=== PATIENT | female | born 1950 | race Caucasian/White ===

== ENCOUNTER 2017-02-21 15:45 | Emergency (ER) | payer MEDICARE, OTHER ==
[~2017-02-21] VITALS: Ht 157.5 cm; Wt 63.2 kg
[2017-02-21 15:47] VITALS: BP 180/96; PULSE 77; RESP 16; O2SAT 100
[2017-02-21 17:57] LABS: BASOPHILS % (AUTO) 0.5 % (0-3); EOSINOPHILS % (AUTO) 1.6 % (0-5); Mean Corpuscular Hemoglobin 28.8 pg (27.0-35.0); Mean Corpuscular Volume 87.4 fL (81-100); NEUTROPHILS % (AUTO) 58.4 % (40-74); Platelet Count 281 bil/L (150-400)
--- NOTE | 2017-02-21 18:53 | ED.REPORT ---
HPI-Abd Pain F 40 and Over Date of Service Feb 21, 2017 ED Provider: Alonzo Dover MD A 66 year old female with a history of hypothyroidism and a family history of diverticulitis is referred to the ED from Urgent Care complaining of abdominal pain. The pt began experiencing cramping pain across her lower abdomen four days ago, which is exacerbated by movement and eating. She rates the pain at a 5 /10 when she pushes on it. This is accompanied by loose stools, though the pt denies vomiting, fever or chills. She had a colonoscopy in 02/2017 which showed diverticulosis. Nursing Notes Stated Complaint: ABDOMINAL PAIN Chief Complaint: Female Abdominal Pain Nursing Notes Reviewed: Yes Allergies: Coded Allergies: azithromycin (Verified Allergy, Severe, 02/21/17) Scheduled Amoxicillin/Clav K 875-125 mg (Augmentin 875-125 mg) 1 Each Tablet 1 TABLET PO BID General Time Seen by MD: 18:52 Chief Complaint Abdominal pain Hx Obtained From: Patient Arrived By: Walk-in Sudden in Onset?: No Onset Occurred: 4 days ago Symptom Duration: Since onset Recent Healthcare: No recent hospitalization, Recent doctor visit Similar Sx Previous: No Past Medical History Past Medical History hypothyroidism Past Surgical History colonoscopy 02/2014 Reports: Cholecystectomy Family History diverticulitis Smoking History Never Smoker Social History one beer daily Other Social History: Good social support, Ambulatory Status Independent Review of Systems Constitutional: Denies: Chills, Fever Respiratory: Denies: Non-productive cough, Shortness of breath Cardiovascular: Denies: Chest pain GI: Reports: Abdominal pain, Diarrhea, Denies: Vomiting Musculoskeletal: Denies: Back pain, Neck pain Complete sys rev & neg: except as marked. Physical Exam Vital Signs Vital Signs (First) Date Time Temp Pulse Resp B/P Pulse Ox O2 Delivery O2 Flow Rate FiO2 02/21/17 15:47 36.6 77 16 180/96 100 Room Air Initial VS: Reviewed General/Constitutional: Awake, Alert Respiratory / Chest: Atraumatic, Breath sounds NL, Breath sounds = bilat, No respiratory distress Cardiovascular: Heart rate NL, Regular rhythm, Heart sounds NL Abdomen: Atraumatic, Soft mid lower abdominal tenderness with guarding Back: Atraumatic, Full range of motion Head / Eyes: Atraumatic, Normocephalic, PERRL, EOMI ENT: Atraumatic, Airway patent, Mucous membranes moist Skin: Atraumatic, Color NL, No rash, Warm, Dry Neurologic: Oriented X3, Speech NL, No motor deficits, No sensory deficits Neck: Atraumatic, Supple, Full range of motion Upper Extremity / MS: Atraumatic, Full range of motion Lower Extremity / Pelvis / MS: Atraumatic, Full range of motion Psychiatric: Affect NL, Mood NL Interpretation & Diagnostics Lab Results Interpretation Result Diagram: 02/21/17 1740 02/21/17 1740 Test 02/21/17 17:40 02/21/17 17:56 White Blood Count 7.3th/mm3 (3.8-10.1) Red Blood Count 4.68mil/mm3 (3.90-5.20) Hemoglobin 13.5g/dL (12.0-15.6) Hematocrit 40.9% (35.0-46.0) Mean Corpuscular Volume 87.4fL (81-100) Mean Corpuscular Hemoglobin 28.8pg (27.0-35.0) Mean Corpuscular Hemoglobin Concent 33.0% (32.0-37.0) Red Cell Distribution Width 13.3% (12.3-15.4) Platelet Count 281bil/L (150-400) Neutrophils (%) (Auto) 58.4% (40-74) Lymphocytes (%) (Auto) 32.4% (14-46) Monocytes (%) (Auto) 7.0% (4-12) Eosinophils (%) (Auto) 1.6% (0-5) Basophils (%) (Auto) 0.5% (0-3) Sodium Level 138mEq/L (134-144) Potassium Level 3.9mEq/L (3.5-5.2) Chloride Level 99mEq/L (97-108) Carbon Dioxide Level 23mmol/L (18-29) Blood Urea Nitrogen 15mg/dL (8-27) Creatinine 0.78mg/dL (0.57-1.00) Estimat Glomerular Filtration Rate 105mL/min (>59) Glucose Level 100mg/dL (60-99) Calcium Level 10.2mg/dL (8.5-10.1) Magnesium Level 2.0mg/dL (1.6-2.6) Total Bilirubin 0.3mg/dL (0.0-1.2) Aspartate Amino Transf (AST/SGOT) 18U/L (0-50) Alanine Aminotransferase (ALT/SGPT) 12U/L (0-32) Alkaline Phosphatase 76U/L (25-165) Total Protein 8.3g/dL (6.4-8.4) Albumin 4.1g/dL (3.4-5.0) Lipase 46U/L (13-60) Hold Bah Top Tube Received (Received) Hold Urine Received (Received) Re-Eval/Medical Decision Source of Hx: Old records Re-Evaluation/Progress : Time of Eval: 19:04 Patient Status: Condition improved Re-Evaluation/Progress Note: I discussed the possible diagnosis of diverticulitis which seems likely to me. I offered CT imaging which she has declined at this time. This also seems reasonable to me I think empiric therapy for diverticulitis is appropriate with close outpatient follow-up. The diagnosis and plan for discharge was discussed. The pt understands and agrees with the plan. All questions are addressed at this time. Counseled Regarding: Diagnosis, Lab results, Need for follow-up, When/why to return to ED Discharge & Departure Primary Impression: Diverticulitis Diverticulitis site: unspecified part of intestinal tract Diverticulitis bleeding: without bleeding Diverticulitis complication: without perforation or abscess Qualified Code: K57.92 - Diverticulitis of intestine, part unspecified, without perforation or abscess without bleeding Disposition: Home Discharge Condition All VS Reviewed: Yes Condition: Stable Patient Instructions: Diverticulitis (ED) Additional Instructions: Thank you for allowing us to be a part of your care. Take one tablet of Augmentin twice daily. Ibuprofen or Tylenol for pain. Take 1-2 Vicodin ( hydrocodone/APAP) every 4-6 hours as needed for severe pain. Arrange a follow up appointment in the clinic early next week. Return to the emergency department if you develop any new or worsening symptoms including fever, vomiting, or increasing pain. Referrals: Eliza Marie (PCP) Scribe Attestation Portions of this note were transcribed by Josh Perry. I, Dr. Dover personally performed the history, physical exam and medical decision-making; I reviewed and confirmed the accuracy of the information in the transcribed note. copies to: Eliza Marie Kirk H MD Feb 21, 2017 18:53 JOSH PERRY Feb 21, 2017 19:01
[2017-02-21] MEDS ORDERED: AMOX-366 PO (19:07)
[2017-02-21] MEDS ORDERED: Amoxicillin-Clav 875-125 mg Tablet PO ONE (19:10)
[2017-02-21] MEDS ORDERED: _HYDROcodone/APAP 5-325 mg Tablet PO PRN (19:10)
[2017-02-21 19:46] VITALS: BP 156/79; PULSE 54; RESP 16; O2SAT 99
== END 2017-02-21 19:46 | disposition home or self-care (01) ==
LOC: SED 15:45
DX: K57.92 Diverticulitis of intestine, part unspecified, without perforation or abscess without bleeding (principal); E03.9 Hypothyroidism, unspecified; Z88.1 Allergy status to other antibiotic agents